=== PATIENT | female | born 1995 ===

== ENCOUNTER 2025-01-15 08:00 | Day surgery (SDC) | payer OTHER ==
[2025-01-08 12:31] VITALS: BP 120/79
[~2025-01-15] VITALS: Ht 160 cm; Wt 58.1 kg
[~2025-01-15 08:00] MED LIST: CELEBREX100 MG PO
[2025-01-15] MEDS ORDERED: POVIDONE-IODINE 118 ML BOTT TOP ONE (09:28)
[2025-01-15] MEDS ORDERED: HEPARIN SODIUM,PORCINE 5,000 UNITS/ML VIAL SPEPROC ONE (10:30)
[2025-01-15] MEDS ORDERED: HEPARIN SODIUM,PORCINE 5,000 UNITS/ML VIAL ONE (10:30)
[2025-01-15] MEDS ORDERED: IBU800 MG PO (11:32)
[2025-01-15] MEDS ORDERED: NEURONTIN300 MG PO (11:33)
== END 2025-01-15 13:20 | disposition home or self-care (01) ==
LOC: CIR.AMB 08:00
PROVIDERS: ATTEND Obstetrics & Gynecology Gynecology
DX: D27.0 Benign neoplasm of right ovary (principal)